=== PATIENT | male | born 1970 | race Two or more races ===

== ENCOUNTER 2019-01-30 03:59 | Emergency (ER) | payer MEDICAID ==
[~2019-01-30] VITALS: Ht 175.3 cm; Wt 115.7 kg
--- NOTE | 2019-01-30 03:58 | NUR ---
ED Nurse Note: rema romano 32 d/t meth use. per pt he injected meth in his right ac 3 hours ago. pt sates "i feel like my heart racing"
[2019-01-30 04:02] VITALS: BP 167/91
--- NOTE | 2019-01-30 04:10 | NUR ---
ED Nurse Note: iv line established, blood and urine specimen sent to lab. pt bed placed at lowest position, x2 siderails. closely monitoring pt. will await further orders.
--- NOTE | 2019-01-30 04:14 | Emergency Room Report ---
History of Present Illness General Chief Complaint: Substance Abuse Source: Patient Present Illness HPI Patient called EMS. He is complaining of palpitations anxiety, chest pressure after doing methamphetamine. He is been sober for 3 years but then did IV tonight. He has a history of congestive heart failure and has an implanted defibrillator. He has been feeling dizziness and anxiety. He is also diaphoretic. Denies any fevers or chills. He has been taking his medications. He denies orthopnea. There is no dyspnea on exertion at this time. He denies productive cough. The patient does not feel suicidal or homicidal. He stopped use of methamphetamine on his own. He is never attended any rehab program in the past. No nausea, vomiting, diarrhea, dysuria, abdominal pain, depression, visual changes, headache. Allergies: Coded Allergies: No Known Allergies (Unverified , 01/30/19) Patient History Past Medical History: see triage record Past Surgical History: pacemaker Social History: Reports: smoking, drug use Social History Narrative Lives in an apartment Reviewed Nursing Documentation: PMH: Agreed; PSxH: Agreed Nursing Documentation-PMH Past Medical History: No History, Except For Hx Cardiac Problems: Yes - CHF,AFIB, DEFIB IMPLANT Hx Hypertension: Yes Hx COPD: Yes Hx Diabetes: Yes Hx Cancer: No - HEP C History Of Psychiatric Problem: Yes - BIPOLAR Hx Neurological Problems: No - SLEEP APNEA, SPINAL FUSION Hx Cerebrovascular Accident: No - ARTHRITIS Review of Systems All Other Systems: negative except mentioned in HPI Physical Exam Vital Signs Date Time Temp Pulse Resp B/P (MAP) Pulse Ox O2 Delivery O2 Flow Rate FiO2 01/30/19 03:52 98.2 115 18 170/90 (116) 98 Room Air Sp02 EP Interpretation: reviewed, normal General Appearance: alert, GCS 15, non-toxic, mild distress Head: normocephalic Eyes: bilateral eye PERRL, bilateral eye Scleral Injection ENT: moist mucus membranes Neck: supple Respiratory: lungs clear, normal breath sounds Cardiovascular #1: regular rate, rhythm, no edema, no JVD Cardiovascular #2: 2+ radial (R) Gastrointestinal: normal inspection, normal bowel sounds, non tender, no mass, non-distended, overweight Musculoskeletal: back normal, normal range of motion, no calf tenderness, Dmitry 's Sign negative Neurologic: alert, oriented x3, grossly normal Psychiatric: no suicidal/homicidal ideation, anxious Skin: normal color, diaphoresis Medical Decision Making Diagnostic Impression: Primary Impression: Amphetamine abuse Additional Impressions: Hypokalemia CHF (congestive heart failure) Qualified Codes: I50.9 - Heart failure, unspecified ER Course Presents with anxiety and chest pain with palpitations after IV methamphetamine. Differential includes acute myocardial infarction, arrhythmia , exacerbation congestive heart failure, electrolyte abnormality amongst others. Evaluation will be with EKG, chest x-ray and labs. The patient will be treated with Ativan. The patient is placed on a monitor technician. EKG was sinus tachycardia no injury. Chest x-ray implanted defibrillator. Labs significant for elevated BNP and low potassium. Patient improved after Ativan and sleeping. Potassium administered orally. Patient improved. No medical emergency at this time. Still very sleepy. Will observe until more alert. Signed out to Dr. Maldonado. Laboratory Tests Test 01/30/19 04:13 White Blood Count 13.3 K/UL (4.8-10.8) H Red Blood Count 5.74 M/UL (4.70-6.10) Hemoglobin 16.2 G/DL (14.2-18.0) Hematocrit 48.0 % (42.0-52.0) Mean Corpuscular Volume 84 FL (80-99) Mean Corpuscular Hemoglobin 28.2 PG (27.0-31.0) Mean Corpuscular Hemoglobin Concent 33.8 G/DL (32.0-36.0) Red Cell Distribution Width 12.0 % (11.6-14.8) Platelet Count 277 K/UL (150-450) Mean Platelet Volume 7.5 FL (6.5-10.1) Neutrophils (%) (Auto) 75.9 % (45.0-75.0) H Lymphocytes (%) (Auto) 16.2 % (20.0-45.0) L Monocytes (%) (Auto) 5.3 % (1.0-10.0) Eosinophils (%) (Auto) 1.4 % (0.0-3.0) Basophils (%) (Auto) 1.1 % (0.0-2.0) Prothrombin Time 11.7 SEC (9.30-11.50) H Prothrombin Time INR 1.1 (0.9-1.1) PTT 30 SEC (23-33) Urine Color Pale yellow Urine Appearance Clear Urine pH 6.5 (4.5-8.0) Urine Specific [place] 1.015 (1.005-1.035) Urine Protein 2+ (NEGATIVE) H Urine Glucose (UA) Negative (NEGATIVE) Urine Ketones Negative (NEGATIVE) Urine Blood 1+ (NEGATIVE) H Urine Nitrite Negative (NEGATIVE) Urine Bilirubin Negative (NEGATIVE) Urine Urobilinogen Normal MG/DL (0.0-1.0) Urine Leukocyte Esterase Negative (NEGATIVE) Urine RBC 0-2 /HPF (0 - 0) H Urine WBC 0 /HPF (0 - 0) Urine Squamous Epithelial Cells None /LPF (NONE/OCC) Urine Bacteria None /HPF (NONE) Sodium Level 144 MMOL/L (136-145) Potassium Level 2.8 MMOL/L (3.5-5.1) L Chloride Level 104 MMOL/L (98-107) Carbon Dioxide Level 25 MMOL/L (21-32) Anion Gap 15 mmol/L (5-15) Blood Urea Nitrogen 11 mg/dL (7-18) Creatinine 1.2 MG/DL (0.55-1.30) Estimate Glomerular Filtration Rate > 60 mL/min (>60) Glucose Level 123 MG/DL (74-106) H Calcium Level 8.9 MG/DL (8.5-10.1) Total Bilirubin 0.6 MG/DL (0.2-1.0) Aspartate Amino Transferase (AST) 18 U/L (15-37) Alanine Aminotransferase (ALT) 20 U/L (12-78) Alkaline Phosphatase 73 U/L (46-116) Total Creatine Kinase 171 U/L (26-308) Troponin I 0.012 ng/mL (0.000-0.056) Pro-B-Type Natriuretic Peptide 1019 pg/mL (0-125) H Total Protein 8.0 G/DL (6.4-8.2) Albumin 3.9 G/DL (3.4-5.0) Globulin 4.1 g/dL Albumin/Globulin Ratio 1.0 (1.0-2.7) Urine Opiates Screen Negative (NEGATIVE) Urine Barbiturates Screen Negative (NEGATIVE) Phencyclidine (PCP) Screen Negative (NEGATIVE) Urine Amphetamines Screen Positive (NEGATIVE) H Urine Benzodiazepines Screen Negative (NEGATIVE) Urine Cocaine Screen Negative (NEGATIVE) Urine Marijuana (THC) Screen Negative (NEGATIVE) EKG Diagnostic Results Rate: tachycardiac Rhythm: NSR ST Segments: no acute changes - NS tachycardia nonspecific T wave abnormalities rate 101 Rhythm Strip Diag. Results EP Interpretation: yes Rhythm: no PVC's, no ectopy, other - Tachycardia Chest X-Ray Diagnostic Results Chest X-Ray Diagnostic Results : Chest X-Ray Ordered: Yes # of Views/Limited/Complete: 2 View Indication: Other EP Interpretation: Yes Interpretation: no consolidation, no effusion, no pneumothorax, other - Implanted defibrillator Impression: Other Electronically Signed by: Electronically signed by Ramon Kelly MD Last Vital Signs Date Time Temp Pulse Resp B/P (MAP) Pulse Ox O2 Delivery O2 Flow Rate FiO2 01/30/19 07:02 98.2 86 22 135/77 94 Room Air Status: improved Disposition: HOME, SELF-CARE Condition: Improved Scripts Potassium Chloride* (K-DUR*) 20 Meq Tab.er.prt 20 MEQ ORAL TWICE A DAY, #14 TAB 0 Refills Prov: Ramon Kelly MD 01/30/19 Ramon Kelly MD Jan 30, 2019 04:14
[2019-01-30] MEDS ORDERED: LORazepam Inj 2mg/ml 1ml IV ONE (04:15)
--- NOTE | 2019-01-30 04:15 | NUR ---
ED Nurse Note: per ermd, 1L NS order will be cancelled d/t pt having hx of CHF
--- NOTE | 2019-01-30 04:15 | NUR ---
ED Nurse Note: informed ermd that potassium is 2.8, awaiting further orders and will continue to monitor pt.
[2019-01-30 04:28] LABS: APPEARANCE,URINE CLEAR; BASOPHILS % (AUTO) 1.1 % (0.0-2.0); BILIRUBIN, URINE NEGATIVE (NEGATIVE); COLOR,URINE PALE YELLOW; EOSINOPHILS % (AUTO) 1.4 % (0.0-3.0); GLUCOSE, URINE (UA) NEGATIVE (NEGATIVE); HEMOGLOBIN 16.2 G/DL (14.2-18.0); KETONES,URINE NEGATIVE (NEGATIVE); LEUKOCYTE ESTERASE ,URINE NEGATIVE (NEGATIVE); LYMPHOCYTES % (AUTO) 16.2 % (20.0-45.0); MEAN CORPUSCULAR VOLUME 84 FL (80-99); MONOCYTES % (AUTO) 5.3 % (1.0-10.0); NEUTROPHILS % (AUTO) 75.9 % (45.0-75.0); NITRITE,URINE NEGATIVE (NEGATIVE); PH,URINE 6.5 (4.5-8.0); PLATELET COUNT 277 K/UL (150-450); PROTEIN,URINE 2+ (NEGATIVE); RED BLOOD COUNT 5.74 M/UL (4.70-6.10); UROBILINOGEN,URINE NORMAL MG/DL (0.0-1.0); WHITE BLOOD COUNT 13.3 K/UL (4.8-10.8)
[2019-01-30] MEDS ORDERED: SIMVASTATIN20 MG ORAL (04:31)
[2019-01-30] MEDS ORDERED: SPIRIVA INHALE1 PUF1 INH (04:31)
[2019-01-30] MEDS ORDERED: HYDRALAZINE HCL25 M2 PO (04:31)
[2019-01-30] MEDS ORDERED: NORVASC2.5 MG ORAL (04:31)
[2019-01-30] MEDS ORDERED: WELLBUTRIN SR200 MG ORAL (04:31)
[2019-01-30] MEDS ORDERED: LOSARTAN POTASS25 M1 PO (04:31)
[2019-01-30] MEDS ORDERED: COREG12.5 MG ORAL (04:31)
[2019-01-30] MEDS ORDERED: ASPIRIN-LOW81 MG ORAL (04:31)
[2019-01-30] MEDS ORDERED: FUROSEMIDE20 M1 ORAL (04:31)
[2019-01-30] MEDS ORDERED: GLUCOPHAGE1000 MG ORAL (04:31)
[2019-01-30] MEDS ORDERED: OLANZAPINE15 MG ORAL (04:31)
[2019-01-30] MEDS ORDERED: BUSPIRONE HCL30 MG ORAL (04:31)
--- NOTE | 2019-01-30 04:32 | NUR ---
ED Nurse Note: xray at bedside
--- NOTE | 2019-01-30 04:35 | NUR ---
ED Nurse Note: xray complete
[2019-01-30 04:45] LABS: INR 1.1 (0.9-1.1)
[2019-01-30 04:46] LABS: ANION GAP 15 mmol/L (5-15); BLOOD UREA NITROGEN 11 mg/dL (7-18); CALCIUM 8.9 MG/DL (8.5-10.1); CARBON DIOXIDE 25 MMOL/L (21-32); CHLORIDE 104 MMOL/L (98-107); CREATININE 1.2 MG/DL (0.55-1.30); POTASSIUM 2.8 MMOL/L (3.5-5.1); SODIUM 144 MMOL/L (136-145)
[2019-01-30 04:56] LABS: ALANINE AMINOTRANSFERASE 20 U/L (12-78); ALBUMIN 3.9 G/DL (3.4-5.0); ALKALINE PHOSPHATASE 73 U/L (46-116); ASPARTATE AMINO TRANSFERASE 18 U/L (15-37); BILIRUBIN,TOTAL 0.6 MG/DL (0.2-1.0); CREATINE KINASE 171 U/L (26-308)
[2019-01-30 05:55] VITALS: BP 139/89
--- NOTE | 2019-01-30 05:57 | Diagnostic Imaging Report ---
EXAM: XR Chest, 1 View CLINICAL HISTORY: CP TECHNIQUE: Frontal view of the chest. COMPARISON: No relevant prior studies available. FINDINGS: No cardiomegaly. Pacer. Suspected atelectasis. No consolidation, edema or other acute cardiopulmonary findings. IMPRESSION: No acute cardiopulmonary findings.
--- NOTE | 2019-01-30 06:30 | NUR ---
ED Nurse Note: pt is currently asleep in bed. vss. pt bed placed in lowest position with x 2 siderails. will continue to monitor and await further orders.
--- NOTE | 2019-01-30 07:00 | NUR ---
ED Nurse Note: ermd at bedside assessing pt. per ermd, unsafe to dc at the moment will further monitor until ready for safe discharge. pt in bed with x2 side rails. iv site has been discontinued. pt belongings are at bedside.
[2019-01-30 07:02] VITALS: BP 135/77
--- NOTE | 2019-01-30 07:05 | NUR ---
HAND-OFF: Report given to DULCE Jesus.
[2019-01-30] MEDS ORDERED: POTASSIUM CHLO20 ME1 ORAL (07:15)
--- NOTE | 2019-01-30 07:30 | NUR ---
ED Nurse Note: pt awake given sandwich and juice will asess once pt is finished eating.
[2019-01-30 08:28] VITALS: BP 138/76
[2019-01-30 08:29] VITALS: BP 135/77
--- NOTE | 2019-01-30 08:31 | NUR ---
ED Nurse Note: Pt cleared by health care Provider for discharge. DC instructions/prescription was given and explained to pt and verbalized understanding of teachings. All medical deviecs such as ID band removed. Pt is AAO x4, ambulatory and left with all personal belongings.
--- NOTE | 2019-01-30 21:44 | Cardiology Report ---
APPROVED REPORT EKG Measurement Heart [id number] Sinus tachycardia Nonspecific T wave abnormality Abnormal ECG
== END 2019-01-30 08:31 | disposition home or self-care (01) ==
LOC: EDBD 03:59 → EMR 04:33
DX: F15.10 Other stimulant abuse, uncomplicated (principal); E87.6 Hypokalemia; I11.0 Hypertensive heart disease with heart failure; I50.9 Heart failure, unspecified; J44.9 Chronic obstructive pulmonary disease, unspecified; E11.9 Type 2 diabetes mellitus without complications; Z86.19 Personal history of other infectious and parasitic diseases; F31.9 Bipolar disorder, unspecified; Z98.1 Arthrodesis status; G47.30 Sleep apnea, unspecified; M19.90 Unspecified osteoarthritis, unspecified site; F17.200 Nicotine dependence, unspecified, uncomplicated; R00.0 Tachycardia, unspecified
CPT/HCPCS: 36415; 71045; 80053; 80307; 81003; 82550; 83880; 84484; 85025; 85610; 85730; 93005; 96374; 99284; J8499

== ENCOUNTER 2019-09-19 18:48 | Emergency (ER) | payer MEDICAID ==
[~2019-09-19] VITALS: Ht 175.3 cm; Wt 113.4 kg
[~2019-09-19 18:48] MED LIST: ASPIRIN-LOW81 MG ORAL; BUSPIRONE HCL30 MG ORAL; COREG12.5 MG ORAL; FUROSEMIDE20 M1 ORAL; GLUCOPHAGE1000 MG ORAL; HYDRALAZINE HCL25 M2 PO; LOSARTAN POTASS25 M1 PO; NORVASC2.5 MG ORAL; OLANZAPINE15 MG ORAL; POTASSIUM CHLO20 ME1 ORAL; SIMVASTATIN20 MG ORAL; SPIRIVA INHALE1 PUF1 INH; WELLBUTRIN SR200 MG ORAL
--- NOTE | 2019-09-19 18:52 | NUR ---
ED Nurse Note: Pt BIBA co SOB, cough, vomiting, generalized weakness x 2 days. Pt reports hx of CHF, ASthma, COPD. PT VSS, spo2 98% on RA. Awaiting ERMD.
[2019-09-19 18:59] VITALS: BP 143/98
--- NOTE | 2019-09-19 18:59 | NUR ---
ED Nurse Note: ERMD at bedside
[2019-09-19] MEDS ORDERED: Albuterol ud Inhalation HHN ONE (19:00)
--- NOTE | 2019-09-19 19:00 | NUR ---
ED Nurse Note: xray at bedside
--- NOTE | 2019-09-19 19:10 | NUR ---
ED Nurse Note: Blood drawn and sent to lab; all medications administered. pt tolerated well no s/s of distress noted.
--- NOTE | 2019-09-19 19:20 | NUR ---
ED Nurse Note: ERMD at bedside
--- NOTE | 2019-09-19 19:29 | Diagnostic Imaging Report ---
EXAM: XR Chest, 1 View CLINICAL HISTORY: DYSPNEA TECHNIQUE: Frontal view of the chest. COMPARISON: No relevant prior studies available. FINDINGS: Lungs: Accentuation of bronchovascular/interstitial markings. Pleural space: Unremarkable. No pneumothorax. Heart: Cardiomegaly and pacemaker/AICD. Mediastinum: Unremarkable. Bones/joints: No acute fracture. Other findings: Small segment of the left chest is excluded from the [id number]. IMPRESSION: Accentuation of bronchovascular/interstitial markings.
[2019-09-19 19:38] LABS: BASOPHILS % (AUTO) 1.2 % (0.0-2.0); EOSINOPHILS % (AUTO) 1.3 % (0.0-3.0); HEMATOCRIT 43.1 % (42.0-52.0); HEMOGLOBIN 14.1 G/DL (14.2-18.0); MEAN CORPUSCULAR VOLUME 84 FL (80-99); MONOCYTES % (AUTO) 6.2 % (1.0-10.0); NEUTROPHILS % (AUTO) 70.3 % (45.0-75.0); PLATELET COUNT 261 K/UL (150-450); RED BLOOD COUNT 5.12 M/UL (4.70-6.10); RED CELL DISTRIBUTION WIDTH 15.1 % (11.6-14.8)
[2019-09-19 19:47] LABS: INR 1.2 (0.9-1.1)
[2019-09-19 19:54] LABS: ANION GAP 16 mmol/L (5-15); BLOOD UREA NITROGEN 24 mg/dL (7-18); CALCIUM 8.6 MG/DL (8.5-10.1); CARBON DIOXIDE 20 MMOL/L (21-32); CHLORIDE 108 MMOL/L (98-107); CREATININE 1.7 MG/DL (0.55-1.30); POTASSIUM 3.1 MMOL/L (3.5-5.1); SODIUM 144 MMOL/L (136-145)
--- NOTE | 2019-09-19 19:55 | NUR ---
ED Nurse Note: RT called for breathing tx
[2019-09-19 20:07] LABS: ALANINE AMINOTRANSFERASE 25 U/L (12-78); ALBUMIN 3.3 G/DL (3.4-5.0); ALBUMIN/GLOBULIN RATIO 0.9 (1.0-2.7); ALKALINE PHOSPHATASE 59 U/L (46-116); ASPARTATE AMINO TRANSFERASE 13 U/L (15-37); BILIRUBIN,TOTAL 0.6 MG/DL (0.2-1.0); CREATINE KINASE 67 U/L (26-308)
--- NOTE | 2019-09-19 20:10 | NUR ---
ED Nurse Note: RT at bedside
[2019-09-19] MEDS ORDERED: Metoprolol Tartrate 5mg/5ml Inj IVP SCH (20:15)
--- NOTE | 2019-09-19 20:30 | NUR ---
ED Nurse Note: Lopressor administered, pt tolerated well. initial BP 139/94 HR 97. VS 5 minutes after administration - BP 127/91 HR 86. Pt tolerated well, no adverse reactions noted. ERMD aware
--- NOTE | 2019-09-19 21:14 | Emergency Room Report ---
History of Present Illness General Chief Complaint: Dyspnea/Respdistress Source: Patient Present Illness HPI Patient presents with worsened shortness of breath. He denies any chest pain at this time. The patient has a history of congestive heart failure. He says his ejection fraction is 20%. He has a implanted ventricular defibrillator. He states that his edema was worse but improved post hospitalization. He denies any calf pain. He says 2 months ago his ejection fraction was 40%. He was just discharged 2 weeks ago. Bumex was added to his medications at that time. He denies recent drug use. Prior use of amphetamines. He has felt palpitations and believes his heart rate was increased. He states he has a history of atrial fibrillation with rapid ventricular response. The patient is somewhat depressed over his poor cardiac function. No fevers, chills, sore throat, chest pain, nausea, vomiting, diarrhea, dysuria , abdominal pain, joint pain, rashes, visual changes, dizziness, headache. Allergies: Coded Allergies: No Known Allergies (Unverified , 01/30/19) Patient History Past Medical History: see triage record Past Surgical History: other - IVCD Social History: Reports: smoking, drug use - Past Social History Narrative From home Reviewed Nursing Documentation: PMH: Agreed; PSxH: Agreed Nursing Documentation-PMH Past Medical History: No History, Except For Hx Cardiac Problems: Yes - CHF,AFIB, DEFIB IMPLANT Hx Hypertension: Yes Hx Asthma: Yes Hx COPD: Yes Hx Diabetes: Yes Hx Cancer: No - HEP C Hx Neurological Problems: No - SLEEP APNEA, SPINAL FUSION Hx Cerebrovascular Accident: No - ARTHRITIS Review of Systems All Other Systems: negative except mentioned in HPI Physical Exam Vital Signs Date Time Temp Pulse Resp B/P (MAP) Pulse Ox O2 Delivery O2 Flow Rate FiO2 09/19/19 18:36 99.1 104 18 150/106 (121) 97 Room Air Sp02 EP Interpretation: reviewed, normal General Appearance: well appearing, no apparent distress, GCS 15 Head: normocephalic Eyes: bilateral eye normal inspection, bilateral eye PERRL, bilateral eye EOMI ENT: moist mucus membranes Neck: supple Respiratory: rales, wheezing, expiration Cardiovascular #1: regular rate, rhythm, edema - Trace Cardiovascular #2: 2+ radial (R) Gastrointestinal: normal inspection, normal bowel sounds, non tender, no mass, non-distended Musculoskeletal: back normal, normal range of motion, gait/station normal Neurologic: alert, oriented x3 Medical Decision Making Diagnostic Impression: Primary Impression: Acute exacerbation of congestive heart failure Qualified Codes: I50.43 - Acute on chronic combined systolic (congestive) and diastolic (congestive) heart failure Additional Impressions: Elevated troponin Bronchospasm Renal insufficiency ER Course Patient presents with dyspnea and history of congestive heart failure. Differential includes acute myocardial infarction, exacerbation of congestive heart failure, worsened renal failure, electrolyte imbalance amongst others. Patient evaluated with EKG, chest x-ray and labs. Patient treated with IV insulin and breathing treatments. Patient placed on a monitoring specialist. EKG sinus tachycardia [address]-T wave changes and left atrial enlargement. No acute injury. White count elevated to 14,000. Patient denies any fevers or infective etiology. Antibiotics not indicated. No left shift. Renal insufficiency with low bicarb. Elevated BNP. Chest x-ray with congestive failure. Discussed with . Who accepts patient unless troponin extremely elevated. Called with positive troponin. Aspirin ordered as well as metoprolol. I feel this is a marginal elevation and that discussion with Dr. Niño's not indicated at this moment as I feel the patient is stable for transfer to [facility]. Patient diuresing and improving. Laboratory Tests Test 09/19/19 19:20 09/19/19 21:30 White Blood Count 14.0 K/UL (4.8-10.8) H Red Blood Count 5.12 M/UL (4.70-6.10) Hemoglobin 14.1 G/DL (14.2-18.0) L Hematocrit 43.1 % (42.0-52.0) Mean Corpuscular Volume 84 FL (80-99) Mean Corpuscular Hemoglobin 27.5 PG (27.0-31.0) Mean Corpuscular Hemoglobin Concent 32.7 G/DL (32.0-36.0) Red Cell Distribution Width 15.1 % (11.6-14.8) H Platelet Count 261 K/UL (150-450) Mean Platelet Volume 8.7 FL (6.5-10.1) Neutrophils (%) (Auto) 70.3 % (45.0-75.0) Lymphocytes (%) (Auto) 21.0 % (20.0-45.0) Monocytes (%) (Auto) 6.2 % (1.0-10.0) Eosinophils (%) (Auto) 1.3 % (0.0-3.0) Basophils (%) (Auto) 1.2 % (0.0-2.0) Prothrombin Time 12.9 SEC (9.30-11.50) H Prothrombin Time INR 1.2 (0.9-1.1) H Activated Partial Thromboplast Time 28 SEC (23-33) Sodium Level 144 MMOL/L (136-145) Potassium Level 3.1 MMOL/L (3.5-5.1) L Chloride Level 108 MMOL/L (98-107) H Carbon Dioxide Level 20 MMOL/L (21-32) L Anion Gap 16 mmol/L (5-15) H Blood Urea Nitrogen 24 mg/dL (7-18) H Creatinine 1.7 MG/DL (0.55-1.30) H Estimate Glomerular Filtration Rate 42.9 mL/min (>60) Glucose Level 120 MG/DL (74-106) H Calcium Level 8.6 MG/DL (8.5-10.1) Total Bilirubin 0.6 MG/DL (0.2-1.0) Aspartate Amino Transferase (AST) 13 U/L (15-37) L Alanine Aminotransferase (ALT) 25 U/L (12-78) Alkaline Phosphatase 59 U/L (46-116) Total Creatine Kinase 67 U/L (26-308) Troponin I 0.091 ng/mL (0.000-0.056) Pro-B-Type Natriuretic Peptide 7252 pg/mL (0-125) H Total Protein 7.1 G/DL (6.4-8.2) Albumin 3.3 G/DL (3.4-5.0) L Globulin 3.8 g/dL Albumin/Globulin Ratio 0.9 (1.0-2.7) L Urine Color Pale yellow Urine Appearance Clear Urine pH 6.5 (4.5-8.0) Urine Specific [address] 1.010 (1.005-1.035) Urine Protein 2+ (NEGATIVE) H Urine Glucose (UA) Negative (NEGATIVE) Urine Ketones Negative (NEGATIVE) Urine Blood 1+ (NEGATIVE) H Urine Nitrite Negative (NEGATIVE) Urine Bilirubin Negative (NEGATIVE) Urine Urobilinogen Normal MG/DL (0.0-1.0) Urine Leukocyte Esterase Negative (NEGATIVE) Urine RBC 2-4 /HPF (0 - 0) H Urine WBC 0-2 /HPF (0 - 0) Urine Squamous Epithelial Cells Occasional /LPF Urine Bacteria Occasional /HPF (NONE) Urine Mucus Many /LPF (NONE/OCC) H Urine Opiates Screen Negative (NEGATIVE) Urine Barbiturates Screen Negative (NEGATIVE) Phencyclidine (PCP) Screen Negative (NEGATIVE) Urine Amphetamines Screen Negative (NEGATIVE) Urine Benzodiazepines Screen Negative (NEGATIVE) Urine Cocaine Screen Negative (NEGATIVE) Urine Marijuana (THC) Screen Negative (NEGATIVE) EKG Diagnostic Results Rate: tachycardiac Rhythm: NSR ST Segments: no acute changes ASA given to the pt in ED: Yes Rhythm Strip Diag. Results EP Interpretation: yes Rhythm: no PVC's, no ectopy, other - Sinus tachycardia Chest X-Ray Diagnostic Results Chest X-Ray Diagnostic Results : Chest X-Ray Ordered: Yes # of Views/Limited/Complete: 1 View Indication: Other EP Interpretation: Yes Interpretation: no effusion, no pneumothorax, other - CHF Last Vital Signs Date Time Temp Pulse Resp B/P (MAP) Pulse Ox O2 Delivery O2 Flow Rate FiO2 09/19/19 22:34 99.1 95 18 119/95 100 Room Air 100 Status: improved Disposition: XFER [facility] - [facility] Condition: Serious Referrals: [facility],REFERRING (PCP) Ramon Kelly MD Sep 19, 2019 21:14
--- NOTE | 2019-09-19 21:30 | NUR ---
ED Nurse Note: Pt resting in bed, VSS no s/s of distress noted. Awaiting transfer to [facility]
[2019-09-19 21:45] LABS: APPEARANCE,URINE CLEAR; BILIRUBIN, URINE NEGATIVE (NEGATIVE); COLOR,URINE PALE YELLOW; GLUCOSE, URINE (UA) NEGATIVE (NEGATIVE); KETONES,URINE NEGATIVE (NEGATIVE); LEUKOCYTE ESTERASE ,URINE NEGATIVE (NEGATIVE); NITRITE,URINE NEGATIVE (NEGATIVE); PH,URINE 6.5 (4.5-8.0); PROTEIN,URINE 2+ (NEGATIVE); UROBILINOGEN,URINE NORMAL MG/DL (0.0-1.0)
--- NOTE | 2019-09-19 22:25 | NUR ---
ED Nurse Note: Report given to DULCE Reaves [facility] Telemetry and report given to [facility].
[2019-09-19 22:34] VITALS: BP 119/95
--- NOTE | 2019-09-19 22:34 | NUR ---
ER DISCHARGE NOTE: Patient is cleared to be discharged to [facility] via [facility] per ERMD, pt is aox4, on room air, with stable vital signs. pt was able to verbalize understanding, pt id band removed without complications. pt took all belongings.
--- NOTE | 2019-09-19 23:17 | Emergency Room Report ---
History of Present Illness General Chief Complaint: Dyspnea/Respdistress Source: Patient Present Illness HPI Patient presents with increased shortness of breath. He has a history of congestive heart failure. Ejection fraction 20%. He is recently been discharged from the hospital 2 weeks ago. They added Bumex. He still has not been diuresing very well. He denies pain at this time. No productive cough. Baseline dyspnea on exertion. Prior drug usage. Denies at this time. Some depression related to cardiac dysfunction. No fevers, chills, sore throat, chest pain, palpitations, nausea, vomiting, diarrhea, dysuria, abdominal pain, joint pain, rashes, visual changes, dizziness , headache. Allergies: Coded Allergies: No Known Allergies (Unverified , 01/30/19) Patient History Past Medical History: see triage record Past Surgical History: other - IVCD Social History: Reports: smoking, drug use - Prior amphetamine use Social History Narrative From home Reviewed Nursing Documentation: PMH: Agreed; PSxH: Agreed Nursing Documentation-PMH Past Medical History: No History, Except For Hx Cardiac Problems: Yes - CHF,AFIB, DEFIB IMPLANT Hx Hypertension: Yes Hx Asthma: Yes Hx COPD: Yes Hx Diabetes: Yes Hx Cancer: No - HEP C Hx Neurological Problems: No - SLEEP APNEA, SPINAL FUSION Hx Cerebrovascular Accident: No - ARTHRITIS Review of Systems All Other Systems: negative except mentioned in HPI Physical Exam Vital Signs Date Time Temp Pulse Resp B/P (MAP) Pulse Ox O2 Delivery O2 Flow Rate FiO2 09/19/19 18:36 99.1 104 18 150/106 (121) 97 Room Air Sp02 EP Interpretation: reviewed, normal General Appearance: well appearing, no apparent distress, GCS 15 Head: normocephalic Eyes: bilateral eye normal inspection, bilateral eye PERRL, bilateral eye EOMI ENT: moist mucus membranes Neck: supple Respiratory: no respiratory distress, crackles, wheezing, expiration Cardiovascular #1: regular rate, rhythm, edema Cardiovascular #2: 2+ radial (R) Gastrointestinal: normal inspection, normal bowel sounds, non tender, no mass, non-distended Musculoskeletal: back normal, normal range of motion, gait/station normal Neurologic: alert, oriented x3, grossly normal Psychiatric: depressed affect Skin: no rash Medical Decision Making Diagnostic Impression: Primary Impression: CHF (congestive heart failure) Qualified Codes: I50.82 - Biventricular heart failure Additional Impressions: Renal insufficiency Elevated troponin Bronchospasm ER Course Patient presents with dyspnea on exertion and orthopnea with recent discharge from hospital and addition of Bumex with lack of diuresis. Differential includes acute myocardial infarction, exacerbation congestive heart failure, electrolyte imbalance, renal failure amongst others. Evaluation with EKG, chest x-ray and labs. Treatment with IV Lasix. Patient placed on patient monitor. Patient denies pain at this time. Albuterol given for bronchospasm. EKG without injury. Chest x-ray with congestive heart failure. Labs with renal insufficiency. Troponin elevated. Potassium low. Elevated BNP. Called with positive troponin. Aspirin and metoprolol administered. Patient treated with aspirin and nitrates. Diuresing with Lasix. However due to increased troponin medical observation indicated. Patient diuresing. Improved with treatment. Patient admitted for rule out cardiac injury. Discussed with [facility]. Excepted for transfer. Labs Test 09/19/19 19:20 09/19/19 21:30 White Blood Count 14.0 K/UL (4.8-10.8) Red Blood Count 5.12 M/UL (4.70-6.10) Hemoglobin 14.1 G/DL (14.2-18.0) Hematocrit 43.1 % (42.0-52.0) Mean Corpuscular Volume 84 FL (80-99) Mean Corpuscular Hemoglobin 27.5 PG (27.0-31.0) Mean Corpuscular Hemoglobin Concent 32.7 G/DL (32.0-36.0) Red Cell Distribution Width 15.1 % (11.6-14.8) Platelet Count 261 K/UL (150-450) Mean Platelet Volume 8.7 FL (6.5-10.1) Neutrophils (%) (Auto) 70.3 % (45.0-75.0) Lymphocytes (%) (Auto) 21.0 % (20.0-45.0) Monocytes (%) (Auto) 6.2 % (1.0-10.0) Eosinophils (%) (Auto) 1.3 % (0.0-3.0) Basophils (%) (Auto) 1.2 % (0.0-2.0) Prothrombin Time 12.9 SEC (9.30-11.50) Prothromb Time International Ratio 1.2 (0.9-1.1) Activated Partial Thromboplast Time 28 SEC (23-33) Sodium Level 144 MMOL/L (136-145) Potassium Level 3.1 MMOL/L (3.5-5.1) Chloride Level 108 MMOL/L (98-107) Carbon Dioxide Level 20 MMOL/L (21-32) Anion Gap 16 mmol/L (5-15) Blood Urea Nitrogen 24 mg/dL (7-18) Creatinine 1.7 MG/DL (0.55-1.30) Estimat Glomerular Filtration Rate 42.9 mL/min (>60) Glucose Level 120 MG/DL (74-106) Calcium Level 8.6 MG/DL (8.5-10.1) Total Bilirubin 0.6 MG/DL (0.2-1.0) Aspartate Amino Transf (AST/SGOT) 13 U/L (15-37) Alanine Aminotransferase (ALT/SGPT) 25 U/L (12-78) Alkaline Phosphatase 59 U/L (46-116) Total Creatine Kinase 67 U/L (26-308) Troponin I 0.091 ng/mL (0.000-0.056) Pro-B-Type Natriuretic Peptide 7252 pg/mL (0-125) Total Protein 7.1 G/DL (6.4-8.2) Albumin 3.3 G/DL (3.4-5.0) Globulin 3.8 g/dL Albumin/Globulin Ratio 0.9 (1.0-2.7) Urine Color Pale yellow Urine Appearance Clear Urine pH 6.5 (4.5-8.0) Urine Specific [place] 1.010 (1.005-1.035) Urine Protein 2+ (NEGATIVE) Urine Glucose (UA) Negative (NEGATIVE) Urine Ketones Negative (NEGATIVE) Urine Blood 1+ (NEGATIVE) Urine Nitrite Negative (NEGATIVE) Urine Bilirubin Negative (NEGATIVE) Urine Urobilinogen Normal MG/DL (0.0-1.0) Urine Leukocyte Esterase Negative (NEGATIVE) Urine RBC 2-4 /HPF (0 - 0) Urine WBC 0-2 /HPF (0 - 0) Urine Squamous Epithelial Cells Occasional /LPF Urine Bacteria Occasional /HPF (NONE) Urine Mucus Many /LPF (NONE/OCC) Urine Opiates Screen Negative (NEGATIVE) Urine Barbiturates Screen Negative (NEGATIVE) Phencyclidine (PCP) Screen Negative (NEGATIVE) Urine Amphetamines Screen Negative (NEGATIVE) Urine Benzodiazepines Screen Negative (NEGATIVE) Urine Cocaine Screen Negative (NEGATIVE) Urine Marijuana (THC) Screen Negative (NEGATIVE) EKG Diagnostic Results Rate: normal Rhythm: NSR ST Segments: no acute changes ASA given to the pt in ED: Yes Rhythm Strip Diag. Results EP Interpretation: yes Rhythm: NSR, no PVC's, no ectopy Chest X-Ray Diagnostic Results Chest X-Ray Diagnostic Results : Chest X-Ray Ordered: Yes # of Views/Limited/Complete: 1 View Indication: Shortness of Breath EP Interpretation: Yes Interpretation: no effusion, no pneumothorax, other - Vascular congestion Impression: Other Electronically Signed by: Electronically signed by Ramon Kelly MD Last Vital Signs Date Time Temp Pulse Resp B/P (MAP) Pulse Ox O2 Delivery O2 Flow Rate FiO2 09/19/19 18:36 99.1 104 18 150/106 (121) 97 Room Air Status: improved Disposition: XFER SHT-TRM HOSP Condition: Serious Referrals: [facility],REFERRING (PCP) Ramon Kelly MD Sep 19, 2019 23:17
== END 2019-09-19 22:34 | disposition short-term general hospital (02) ==
LOC: EDBD 18:48 → EMR 19:19
DX: I50.43 Acute on chronic combined systolic (congestive) and diastolic (congestive) heart failure (principal); J98.01 Acute bronchospasm; N28.9 Disorder of kidney and ureter, unspecified; R79.89 Other specified abnormal findings of blood chemistry; I50.9 Heart failure, unspecified; I11.0 Hypertensive heart disease with heart failure; J44.9 Chronic obstructive pulmonary disease, unspecified; E11.9 Type 2 diabetes mellitus without complications; G47.30 Sleep apnea, unspecified; M19.90 Unspecified osteoarthritis, unspecified site; F15.11 Other stimulant abuse, in remission; Z86.19 Personal history of other infectious and parasitic diseases; Z87.891 Personal history of nicotine dependence; Z95.810 Presence of automatic (implantable) cardiac defibrillator
CPT/HCPCS: 36415; 71045; 80053; 80307; 81003; 82550; 83880; 84484; 85025; 85610; 85730; 93005; 94640; 94664; 96374; 96375; J1940; Z7502; 99285